=== PATIENT | male | born 1960 | race Caucasian/White ===

== ENCOUNTER → 2018-10-07 | Outpatient (CLI) | payer OTHER ==
[~2018-10-07] MED LIST: CEPH500 PO; CYCL10 PO; HYDACE10B PO; HYDACE5 PO; META800 PO; NAPR500 PO; NAPR550 PO; OXYACE5T PO; PROM25 PO; [UNRECOGNIZED DRUG - REMARK]
== END | disposition home or self-care (01) ==
LOC: LAB SHORT 06:00 → LAB 06:00
DX: E80.1 Porphyria cutanea tarda (principal); D48.5 Neoplasm of uncertain behavior of skin
CPT/HCPCS: 81050

== ENCOUNTER → 2019-01-22 | Outpatient (CLI) | payer OTHER | LOC: LAB SHORT 11:16 → LAB 11:16 → LAB FUT 01-21 11:45 | DX: E80.1 Porphyria cutanea tarda (principal) | CPT/HCPCS: 81050 ==